=== PATIENT | male | born 1965 | race Caucasian/White ===

== ENCOUNTER 2020-04-25 09:13 | Emergency (ER) | payer BC, SELFPAY ==
[2020-04-25 09:15] VITALS: BP 192/111; PULSE 65; RESP 18; TEMP 36.6; O2SAT 99; BMI 44.4
--- NOTE | 2020-04-25 09:30 | EKG12_ITS ---
Test Reason : DIZZY Blood Pressure : / mmHG Vent. Rate : 072 BPM Atrial Rate : 072 BPM P-R Int : 166 ms QRS Dur : 096 ms QT Int : 414 ms P-R-T Axes : 069 025 028 degrees QTc Int : 453 ms Normal sinus rhythm Normal ECG Confirmed by DHRUV FUENTES, NORA ([id number]), features editor MARIALUISA OMALLEY ([id number]) on 04/26/2020 2:10:46 PM Referred By: JUAN JOSE/NAHOMY Confirmed By:NORA BARTLETT MD
--- NOTE | 2020-04-25 09:30 | CT_ITS ---
STUDY: CT BRAIN WITHOUT CONTRAST REASON FOR EXAM: Male, 54 years old. Altered mental status, feels disoriented, trouble following conversations and amp; staying on task. Hx hypertension. RADIATION DOSAGE (If Supplied By Facility): CTDIvol = ( 44.99 ) mGy, DLP = ( 812.98 ) mGycm TECHNIQUE: Transaxial CT imaging of the brain was performed without administration of intravenous contrast material. Individualized dose optimization techniques were used for this CT. COMPARISON: No relevant priors. FINDINGS: Normal soft tissue structures. Normal calvarium. Normal size ventricles and extra-axial spaces for the patient''s age. Normal white matter tracts of the cerebral hemispheres. There are small punctate calcifications of the basal ganglia which are seen in the aging brain as a normal variant. Normal brainstem. Normal cerebellum. There is no intracranial hemorrhage. There are no findings of an acute ischemic infarction. Normal visualized paranasal sinuses. CT/Brain/Head without Contrast IMPRESSION: Normal unenhanced CT scan of the brain. Electronically Signed: Burton Marx, at 10:10 EST , Service support ,
[2020-04-25 09:31] LABS: Bedside Glucose 96 mg/dL (70-110)
--- NOTE | 2020-04-25 09:37 | ED.VIS.GEN ---
History of Present Illness Chief Complaint: Alt LOC Informant: Patient Narrative: Patient is a 54-year-old male with a past medical history of hypertension, A. fib on Xarelto, diabetes that is diet-controlled who presents to the emergency department for difficulty concentrating at work. He states that he is a very type a person and normally takes full advantage of his time. Today he feels like he was having difficulty staying on task. He feels like he was constantly losing train of his thoughts. He denies ever having this happen before in the past. No headache or vision changes. No weakness or loss of sensation in any extremity. No history of strokes. States he has been compliant with his medications. Denies any recent illness. He was diagnosed with coronavirus in early December but was asymptomatic at that time. Past Medical History - Allergies and Home Meds Allergies/Adverse Reactions: Allergies No Known Allergies Allergy (Verified 04/25/20 09:17) Primary Care Physician: Mario Jones DO [COURTESY STAFF PHYSICIAN] - 3-5 Days Prior records reviewed: Yes Smoking Status: Former smoker Review of Systems All systems negative except as indicated General: Denies: Chills, Fever, Sweats Eyes: Denies: Visual changes - bilaterally, Diplopia ENT: Denies: Rhinorrhea, Sore throat Cardiovascular: Denies: Chest pain, Palpitations Respiratory: Denies: Dyspnea, Cough, Dyspnea on exertion Gastrointestinal: Denies: Abdominal pain, Nausea, Vomiting, Diarrhea Genitourinary: Denies: Dysuria, Hematuria, Frequency Musculoskeletal: Denies: Back pain, Extremity Pain Skin: Denies: Rash, Wounds Neurological: Reports: Parasthesia - Feels some tingling in his fingers bilaterally. Denies: Headache, Weakness, Numbness Physical Exam Vital Signs/Narrative: Vital Signs Temp Pulse Resp BP Pulse Ox 04/25/20 09:15 98 F 65 18 192/111 H 99 Inital Vital Signs reviewed: Yes General: Well nourished, Well developed, No Acute Distress Head: Normocephalic, Atraumatic Eyes: Perrl, EOMI ENT: Moist mucous membranes, No rhinorrhea Neck: Supple, Nontender Cardiovascular: Regular rate, Regular rhythm, No murmurs Respiratory: No distress, CTA bilaterally, Chest nontender Abdomen: Soft, Nontender, Nondistended, Normal bowel sounds Back: Nontender, Normal Inspection Extremities: Nontender, Edema - Trace edema of bilateral lower extremities that is symmetrical.. Negative for: Calf Tenderness Skin: Normal color, No rash Neurological: Alert, Oriented x3, Cranial nerves II-XII grossly intact, Normal Strength, Normal Sensation, - - Conversing appropriately. Answering questions and cooperative.. Negative for: Confused, Disoriented, Inattentive, Left side facial droop, Right side facial droop Psychological: Normal affect, Normal Mood Diagnostic/Tx/Re-eval - EKG Initial EKG Interpretation: - - Rate of 72 bpm and normal sinus rhythm. Normal intervals. Normal axis. No ST elevations or depressions. No T wave abnormalities. - Medical Decision Making Patient presents to the ED for difficulty concentrating at work today. He states that he has been working more than normal. This is the first time he is ever had over time in many years. He states he has not been sleeping as much as he thinks he should be. Upon arrival to the emergency department he is hypertensive. States he did take his medications this morning. Otherwise he has no acute distress with no focal neurological deficits. Patient's work-up did not reveal any acute findings. CT scan of the head did not show any acute intracranial abnormality. He has been stable throughout ED stay. No focal deficits. I believe that this is most likely related to him working more and not sleeping as much. He will need to follow-up with his PCP. I did discuss strict return precautions with him including developing any focal deficits were reviewed. He understands and is agreeable this plan. He is discharged home in stable condition. All questions answered. ED Disposition - Plan for ED Patient: Disposition: Home or Assisted Living Diagnosis: Difficulty concentrating Instructions: ED Confusion Referrals: Mario Jones DO [COURTESY STAFF PHYSICIAN] - 3-5 Days
[2020-04-25 09:56] LABS: Absolute Lymphocyte Count 2.92 X10^3/uL (0.83-4.51); Absolute Neutrophil Count 5.6 X10^3/uL (2.0-7.7); Basophil# 0.06 X10^3/uL; Basophil% 0.6 % (0-1); Eosinophil# 0.43 X10^3/uL; Eosinophils% 4.4 % (0-5); Hematocrit 42.5 % (40-54); Lymphocyte # 2.92 X10^3/ul (4.0); Lymphocyte % 29.9 % (19-41); Mean Corp Hgb Conc 32.9 g/dL (32-36); Mean Corpuscular Hgb 29.9 pg (27.0-32.0); Mean Corpuscular Volume 90.6 fL (80-94); Monocyte# 0.71 X10^3/uL; Monocyte% 7.3 % (0-10); NRBC Flagged by Analyzer 0 % (0-5); Neutrophil % 57.5 % (47-70); Platelet Count 262 K/mm3 (150-450); RBC Distribution Width CV 13.8 % (11.6-14.6); RBC Distribution Width SD 45.9 fl (35.1-43.9); Red Blood Count 4.69 M/mm3 (4.6-6.2); White Blood Count 9.8 K/mm3 (4.4-11.0)
[2020-04-25 10:17] LABS: Anion Gap 4 (5-15); BUN 16 mg/dL (7-18); Calcium,Total 8.9 mg/dL (8.5-10.1); Chloride 104 mmol/L (98-107); EST Glomerular Filtration Rate 126 mL/min (>60); Est Glom Filt Rate - Afr Amer 153 mL/min (>60); Estimated Creatinine Clearance 147.54 ml/min; Glucose 101 mg/dL (74-106); Potassium 4.3 mmol/L (3.5-5.1); Sodium Level 139 mmol/L (136-145)
[2020-04-25 10:18] VITALS: BP 160/72; PULSE 76; RESP 15; O2SAT 97
[2020-04-25 11:59] VITALS: BP 148/69; PULSE 72; RESP 15; O2SAT 98
== END 2020-04-25 12:00 | disposition home or self-care (01) ==
PROVIDERS: Emergency Provider Emergency Medicine; PCP Nurse Practitioner Primary Care
DX: R41.82 Altered mental status, unspecified (principal); R20.2 Paresthesia of skin; I48.91 Unspecified atrial fibrillation; E11.9 Type 2 diabetes mellitus without complications; I10 Essential (primary) hypertension; Z79.01 Long term (current) use of anticoagulants; Z79.899 Other long term (current) drug therapy; Z86.19 Personal history of other infectious and parasitic diseases; Z87.891 Personal history of nicotine dependence
CPT/HCPCS: 70450; 80048; 82962; 84484; 85025; 93005; 99283; A4216